=== PATIENT | male | born 1980 | race Caucasian/White ===

== ENCOUNTER → 2018-01-10 | Outpatient (REF) ==
[~2018-01-10] MED LIST: ACE500 PO; AUGMENTIN PO; AZIT500T47 PO; CEP500 PO; CLA500 PO; DOC100 PO; IBU800 PO; IBUP-1618 PO; LOR5/325 PO; PER PO
== END ==
LOC: AUD 08:50
PROVIDERS: ATTEND Nurse Practitioner Psychiatric/Mental Health
DX: Z01.10 Encounter for examination of ears and hearing without abnormal findings (principal)
CPT/HCPCS: 92552

== ENCOUNTER → 2019-01-09 | Outpatient (REF) | LOC: AUD 13:29 | PROVIDERS: ATTEND Nurse Practitioner Psychiatric/Mental Health | DX: Z01.12 Encounter for hearing conservation and treatment (principal) | CPT/HCPCS: 92552 ==